=== PATIENT | male | born 1940 | race Caucasian/White ===

== ENCOUNTER 2017-05-02 14:28 | Inpatient (IN) ==
--- NOTE | 2017-05-02 15:46 | CT Report ---
Referring physician: Rylan Minor EXAM: CT abdomen and pelvis with contrast DATE: 05/02/2017 COMPARISON: 01/18/2016 REASON: Lower GI bleeding with history of diverticulitis TECHNIQUE: Axial images of the abdomen and pelvis were obtained after administration of 100 cc of Omnipaque 350 IV contrast. Coronal and sagittal reformatted images were also provided. Total DLP is 848.30 mGy*cm. FINDINGS: Stable 12 mm nodule in the right lower lobe with central calcification. Chronic scarring/atelectasis at the visualized lung bases. Coronary artery calcifications. The liver is normal in size with 6 mm hypodensity in the posterior right lobe. There is peripheral enhancement with filling in with contrast on the delayed scans. The previous exam was obtained without contrast which makes it more difficult to compare this finding. No dilated ducts or calcified gallstones. The spleen is normal in size with multiple calcified granulomata. The pancreas, adrenal and adrenal glands are stable in appearance. Cortical scarring kidneys with multiple renal cysts. 7 mm calculus lower pole of the right kidney. 2 mm mid pole left renal calculus with no definite ureteral calculi. Calcification in the wall of the nondilated abdominal aorta with no adjacent adenopathy. Small hiatal hernia and fat-containing umbilical hernia. Extensive diverticulosis of the colon. Diffuse thickening of the wall of the left colon. No evidence of focal diverticulitis, appendicitis, free air, or free fluid. 27 mm density at the level of the ileocecal valve. Calcifications in the prostate which measures 55 mm in diameter and indents the base of the urinary bladder. 7.61 mm anterolisthesis of L5 in relationship to S1 with degenerative changes IMPRESSION: Stable 12 mm nodule in the right lower lobe which contains central calcification. Arterial calcifications including coronary artery calcifications. Probable 6 mm hemangioma in the right lobe of the liver. Evidence of old healed granulomatous disease with calcified granulomata in the spleen. Cortical scarring in the kidneys with bilateral nephrocalcinosis and renal cysts. Small hiatal hernia and fat-containing umbilical hernia. Extensive diverticulosis of the colon with progressive diffuse thickening of the wall of the left colon which could be related to colitis, inflammatory bowel disease, etc. 28 mm density at the level of the ileocecal valve which may represent a mass, polyp, or fecal material. Endoscopy may be helpful for further evaluation of these findings. Nonspecific enlargement of the prostate. Grade 1 spondylolisthesis at L5-S1 with degenerative changes. The CT exam was performed using one or more of the following dose reduction techniques: Automated exposure control and adjustment of the mA and/or kV according to patient size. PROCEDURE INTERPRETED AT [facility] DEPARTMENT OF RADIOLOGY Final Report Signed by: Dr. Leighann Mcgee
[2017-05-02 15:53] LABS: Basophils % 0.1 % (0.0-0.8); Eosinophils # 0.1 10*3/uL (0.0-0.87); Eosinophils % 1.2 % (0.00-10.9); Hematocrit 39.1 VOL% (42.0-52.0); Hemoglobin 12.9 GM/DL (14.0-18.0); Immature Granulocytes % 0.1 %; Immature Granulocytes Absolute 0.01 #; Lymphocytes # 1.1 10*3/uL (1.4-4.0); Lymphocytes % 14.7 % (21.2-54.2); Mean Corpuscular Hemoglobin 32 PG (27-34); Mean Corpuscular Volume 95.8 FL (87-102); Mean Platelet Volume 11.6 FL (9.6-12.0); Monocytes # 0.6 10*3/uL (0.11-0.8); Monocytes % 7.4 % (1.7-12.7); Neutrophils # 5.6 10*3/uL (1.4-7.4); Neutrophils % 76.5 % (38.7-73.9); Platelet Count 194 T/CUMM (130-400); Red Blood Count 4.08 MC/CUMM (3.8-5.5); Red Cell Distribution Width 13.6 % (9.3-17.3); White Blood Count 7.4 T/CUMM (4-12)
[2017-05-02 16:01] LABS: PT Patient Result 10.9 SECS
[2017-05-02 16:16] LABS: Albumin 3.7 G/DL (3.4-5.0); Bilirubin,Total 0.5 MG/DL (0.2-1.0); Calcium 8.9 MG/DL (8.5-10.1); Magnesium 1.9 MG/DL (1.8-2.4); Osmolality,Calculated 287.7 MOS/KG (273-304); Potassium 3.9 MMOL/L (3.5-5.1); Total Protein 6.5 G/DL (6.4-8.3)
--- NOTE | 2017-05-02 16:49 | Emergency Department Note ---
Wyatt Donovan Rolonda, am scribing for, and in the presence of, Rylan Minor MD 14:46. Iván Donovan Phillip K, MD, personally performed the services described in this documentation, ascribed by Matthew Schneider in my presence, and it is both accurate and complete [id number] . Arrival - Arrival Chief Complaint: GI Bleed/Rectal Stated Complaint: abdominal pain; gi bleed Mode of Arrival: Ambulatory Limitations: No Limitations Source: Patient, Old Records Reviewed, RN Notes Reviewed - History of Present Illness HPI Narrative: Pt is a 76 y/o male who presents to the ED for further evaluation of blood in the stool with an onset of this morning. Pt has a PMHx of Diverticulitis and Hemorrhoids with his last scope being x4 years ago. He stated that while trying to have a BM this morning he experienced stomach cramps, blood in his stool and recently 4-5 times. He confirmed that he takes baby ASA daily, Ibuprofen occasionally, and that he had a subjective fever this morning; at time of triage pt's temperature was 99.0. No other pain/complaint in ED. Onset (ago): hour(s) Consistency: constant Severity: moderate Severity scale (1-10): 3 Allergies/Adverse Reactions: Allergies Allergy/AdvReac Type Severity Reaction Status Date / Time No Known Allergies Allergy Verified 01/18/16 06:55 Home Medications: Home Medications Medication Instructions Recorded Confirmed Type Enalapril Tab [Vasotec Tab] 20 mg PO BEDTIME 11/29/15 05/02/17 History Folic Acid 1.6 mg PO DAILY 11/29/15 05/02/17 History Multivit-Min/FA/Lycopen/Lutein 1 each PO QAM 11/29/15 05/02/17 History [Centrum Silver Tablet] Aspirin EC Tab 81 mg PO DAILY 05/02/17 05/02/17 History Gabapentin 300 mg PO BEDTIME 05/02/17 05/02/17 History Methotrexate Tab 25 mg PO Q7DAY 05/02/17 05/02/17 History Omeprazole [Prilosec] 20 mg PO DAILY 05/02/17 05/02/17 History Tamsulosin [Flomax] 0.4 mg PO BID 05/02/17 05/02/17 History Tizanidine HCl [Zanaflex] 4 mg PO BEDTIME 05/02/17 05/02/17 History Review of System - Review of System 12 point system: reviewed and no additional remarkable complaints except as stated - Review of System Constitutional: Present: fever Respiratory: Absent: cough, respiratory distress Cardiovascular: Absent: chest pain Gastrointestinal: Present: other (stomach cramps). Absent: abdominal pain Genitourinary male: Present: other (blood in stool) Musculoskeletal: Absent: arm pain, back pain, neck pain Exam Vital Signs: Vital Signs Temperature 99.0 F 05/02/17 14:29 Pulse Rate 79 05/02/17 14:29 Respiratory Rate 15 05/02/17 14:29 Blood Pressure 122/87 05/02/17 14:29 O2 Sat by Pulse Oximetry 100 05/02/17 14:29 - General General appearance: alert, in no apparent distress - Head Head exam: Present: atraumatic, normocephalic - Eye Eye exam: Present: normal appearance, PERRL, EOMI - ENT ENT exam: Present: mucous membranes moist. Absent: mucous membranes dry - Neck Neck exam: Present: full ROM. Absent: tenderness - Chest Chest inspection: Present: symmetric chest wall rise. Absent: tenderness - Respiratory Respiratory exam: Present: normal lung sounds bilaterally. Absent: rales - Cardiovascular Cardiovascular exam: Present: regular rate, normal rhythm, normal heart sounds. Absent: bradycardia - Abdominal Exam Abdominal exam: Present: soft, normal bowel sounds. Absent: tenderness - Rectal Exam Rectal exam: Present: heme (+) stool - Extremities Exam Extremities exam: Present: full ROM. Absent: tenderness - Back Exam Back exam: Present: full ROM. Absent: tenderness - Neurological Exam Neurological exam: Present: alert, oriented X3, CN II-XII intact - Psychiatric Psychiatric exam: Present: normal affect, normal mood - Skin Skin exam: Present: warm, intact, normal color. Absent: rash Course Course Narrative: Patient discussed with Dr. Lamb in the hospitalist. Dr. Lamb does not recommend any antibiotics at this time. Results - Labs CBC & BMP: 05/02/17 15:41 05/02/17 15:41 Lab Results: I have reviewed the patients labs Labs: Laboratory Tests 05/02/17 15:00 POC Creatinine 0.64 L POC Estimated GFR (eGFR) > 60 Laboratory Tests 05/02/17 05/02/17 05/02/17 15:41 15:41 15:41 WBC 7.4 RBC 4.08 Hgb 12.9 L Hct 39.1 L Plt Count 194 Neut % (Auto) 76.5 H Lymph % (Auto) 14.7 L Lymph # (Auto) 1.1 L INR 1.0 PT Patient/Control Mix 10.9 Sodium 145 Potassium 3.9 Chloride 110 H Carbon Dioxide 25 BUN 16 GFR Calculation 91 - Diagnostic Findings Procedure: CT Abdomen and Pelvis: report reviewed by me (Stable 12 mm nodule in the right lower lobe which contains central calcification. Aterial calcifications including coronary.) Disposition Clinical Impression: Diverticulosis, Probable diverticular bleed Case discussed with: patient Disposition: Still a Patient Condition: Guarded Additional Instructions: Admit to the hospital for serial H&H's.
[2017-05-02] MEDS ORDERED: MAGNESIUM SULF RIDER 2 GM in PREMIX 1 EACH IV PRN (17:34)
[2017-05-02] MEDS ORDERED: HYDROmorphone 2 MG/1 ML VIAL IV PRN (17:34)
[2017-05-02] MEDS ORDERED: MAGNESIUM SULF RIDER 4 GM in PREMIX 1 EACH IV PRN (17:34)
[2017-05-02] MEDS ORDERED: ONDANSETRON 4 MG/2 ML VIAL IV PRN ×2 (17:34→19:37)
--- NOTE | 2017-05-02 17:39 | Hospitalist History & Physical ---
Assessment and Plan (1) Aspirin long-term use Status: Acute Assessment and plan: Aspirin will remain on hold due to active diverticular bleed. Current Visit: Yes (2) Diverticulosis Status: Acute Assessment and plan: CT scan significant for extensive diverticulosis of the colon with progressive diffuse thickening of the wall of the left colon. H&H is stable at the time of ED presentation at 12.9 and 39.1. We will type and screen, gently rehydrate, keep n.p.o., start PPIs, and start DVT prophylaxis. We will hold the aspirin. We will not initiate antibiotic coverage per request of Dr. Lamb. Current Visit: Yes (3) Hypertension Status: Chronic Assessment and plan: Blood pressure is stable at the time of admission, we will continue to monitor. Current Visit: No History of Present Illness Chief complaint: Rectal bleeding History of present illness: This is a very pleasant 76-year-old male that presented to the ED at [facility] this afternoon for the evaluation of rectal bleeding and abdominal pain. The patient has a very extensive medical history significant for: Hypertension, rheumatoid arthritis, asthma, diverticulosis, cerebrovascular accident, transient left leg weakness, benign prostatic hypertrophy. Patient has a surgical history significant for:bilateral shoulder surgery, bilateral neuroma removal from bilateral hands, lithotripsy, and hernia repair. The patient reported the onset of the above symptoms earlier this morning. The patient reported abdominal cramps with multiple bowel movements in which he noted blood was in his stool. The patient reports current aspirin use and occasional ibuprofen use. In addition the patient reported that he had a fever this morning however he was afebrile at the time of ED presentation. The patient was assessed at the time of ED presentation; labs were obtained. Complete blood cell count reported his white blood cell count 7.4, hemoglobin 12.9, hematocrit 31.9. Coagulation panel reported INR 1.0 and PT at 10.9. Chemistry panel reported sodium at 145, potassium 3.9, chloride 110, carbon dioxide 25, BUN 16, creatinine is 0.90 and glucose at 88[address] CT abdomen pelvis reported the following: #1. 12 mm nodule in the right lower lobe which contains central calcification, 2. Arterial calcifications including coronary artery calcification, 3. Probable 6 mm hemangioma in the right lobe of the liver, for evidence of old healed granulomatous disease with calcified granulomata in the spleen, 5. Cortical scarring in the kidneys with bilateral nephro calcinosis and renal cyst, 6. Extensive diverticulosis of the colon with progressive diffuse thickening of the wall of the left colon which could be related to colitis, inflammatory bowel disease. 7. 28 mm density at the level of the ileocecal valve which may represent a mass , polyp, or fecal material. 8. Nonspecific enlargement of the prostate, 9. Grade 1 spondylolisthesis at L5 through S1 with degenerative changes. After brief discussion with both Dr. Minor and Dr. Bhakta, the patient will be admitted to the hospitalist services for continuation of care. Dr. Hardik Lamb was contacted regarding the management of the patient. He has agreed to assist in the management of this patient and requests that no antibiotic coverage be initiated. Home Medications Medication Instructions Recorded Confirmed Type Enalapril Tab [Vasotec Tab] 20 mg PO BEDTIME 11/29/15 05/02/17 History Folic Acid 1.6 mg PO DAILY 11/29/15 05/02/17 History Multivit-Min/FA/Lycopen/Lutein 1 each PO QAM 11/29/15 05/02/17 History [Centrum Silver Tablet] Aspirin EC Tab 81 mg PO DAILY 05/02/17 05/02/17 History Gabapentin 300 mg PO BEDTIME 05/02/17 05/02/17 History Methotrexate Tab 25 mg PO Q7DAY 05/02/17 05/02/17 History Omeprazole [Prilosec] 20 mg PO DAILY 05/02/17 05/02/17 History Tamsulosin [Flomax] 0.4 mg PO BID 05/02/17 05/02/17 History Tizanidine HCl [Zanaflex] 4 mg PO BEDTIME 05/02/17 05/02/17 History Allergies Allergy/AdvReac Type Severity Reaction Status Date / Time No Known Allergies Allergy Verified 01/18/16 06:55 Medical,Surgical,& Family Hx - Medical History Cardio: History of: Hypertension Rheumatology: History of;: Rheumatoid Arthritis Respiratory: History of: Asthma, Respiratory Problems (lung mass) Genitourinary: History of: Kidney Stones Gastrointestinal: History of: Diverticulitis/ Diverticulosis Musculoskeletal: History of: Back/Neck Problems - Surgical History Cardiac Surgeries: Sugical HX of: Cardiac Catheterization Thoracic Surgeries: Surgical HX of;: Lithotripsy, Lobectomy Neurologic Surgeries: Patient denies: Neurologic Surgery Abdominal Surgeries: Surgical HX of: Hernia Repair Orthopedic Surgeries: Surgical HX of;: Orthopedic Surgery (bilateral shoulder surgery and bilateral Carrion's neuroma surgery.) - Family History Family History: Reports;: Family Heart Disease (mother of congestive heart failure) - Social History Smoking Status: Never smoker Frequency of Alcohol Use: None Type of Drug Use: None 12 point system: reviewed and no additional remarkable complaints except as stated Exam - Constitutional Vitals: Period Temp Pulse Resp BP Sys/Marcial Pulse Ox Last 24 Hr 99.0 F-99.0 F 66-79 15-18 118-141/77-91 95-100 General appearance: normal weight, no acute distress - Head Head exam: Present: normal inspection, normocephalic. Absent: atraumatic - Eye Eye exam: Present: EOMI. Absent: conjunctival injection Pupils: Present: SHAKIRA, normal accommodation - ENT ENT exam: Present: normal exam, normal external ear exam, normal oropharynx - Neck Neck exam: Present: normal inspection. Absent: lymphadenopathy, meningismus, tenderness, thyromegaly - Respiratory Respiratory exam: Present: clear to auscultation bilaterally. Absent: rales, rhonchi, stridor - Cardiovascular Cardiovascular exam: Present: regular rate and rhythm - GI/Abdominal GI/Abdominal exam: Present: normal bowel sounds, soft - Extremities Exam Extremities exam: Present: normal inspection, normal capillary refill, full ROM. Absent: edema - Back Exam Back exam: Present: normal inspection - Neurological Exam Neurological exam: Present: alert, oriented X3, CN II-XII intact - Psychiatric Psychiatric exam: Present: normal affect, normal mood - Skin Skin exam: Present: normal color, warm, dry Results - Labs CBC & BMP: 05/02/17 15:41 05/02/17 15:41 Lab Results: I have reviewed the past 24 hour labs
[2017-05-02] MEDS ORDERED: ACETAMINOPHEN 325 MG TABLET PO PRN (19:37)
[2017-05-02] MEDS ORDERED: ZALEPLON 5 MG CAPSULE PO PRN (19:37)
[2017-05-02] MEDS: SODIUM CHLORIDE 0.9% 1,000 ML IV SCH (19:55)
[2017-05-02] MEDS: tiZANidine 4 MG TABLET PO SCH (21:16)
[2017-05-02] MEDS: TAMSULOSIN 0.4 MG CAPSULE PO SCH (21:16)
[2017-05-02] MEDS: GABAPENTIN 300 MG CAPSULE PO SCH (21:16)
[2017-05-02] MEDS: ENOXAPARIN 40 MG/0.4 ML SYRINGE SUBCUT SCH (21:24)
[2017-05-02] MEDS: POTASSIUM CHLORIDE RIDER 10 MEQ in PREMIX 1 EACH IV PRN (21:28)
[2017-05-03] MEDS: SODIUM CHLORIDE 0.9% 1,000 ML IV SCH ×2 (04:07→15:13)
[2017-05-03 05:25] LABS: Basophils % 0.7 % (0.0-0.8); Eosinophils # 0.2 10*3/uL (0.0-0.87); Eosinophils % 3.1 % (0.00-10.9); Hematocrit 35.1 VOL% (42.0-52.0); Hemoglobin 11.9 GM/DL (14.0-18.0); Immature Granulocytes % 0.3 %; Immature Granulocytes Absolute 0.02 #; Lymphocytes # 1.4 10*3/uL (1.4-4.0); Lymphocytes % 23.4 % (21.2-54.2); Mean Corpuscular HGB Conc 33.9 GM/DL (32-36); Mean Corpuscular Hemoglobin 33 PG (27-34); Mean Corpuscular Volume 96.2 FL (87-102); Mean Platelet Volume 10.4 FL (9.6-12.0); Monocytes # 0.4 10*3/uL (0.11-0.8); Monocytes % 6.7 % (1.7-12.7); Neutrophils % 65.8 % (38.7-73.9); Platelet Count 154 T/CUMM (130-400); Red Blood Count 3.65 MC/CUMM (3.8-5.5); Red Cell Distribution Width 13.4 % (9.3-17.3); White Blood Count 6.1 T/CUMM (4-12)
[2017-05-03 05:58] LABS: Troponin I Only < 0.015 NG/ML (0.00-0.045)
[2017-05-03 06:10] LABS: Albumin 3.1 G/DL (3.4-5.0); Bilirubin,Total 0.7 MG/DL (0.2-1.0); Magnesium 1.8 MG/DL (1.8-2.4); Osmolality,Calculated 284.8 MOS/KG (273-304); Potassium 3.6 MMOL/L (3.5-5.1); Total Protein 5.4 G/DL (6.4-8.3)
--- NOTE | 2017-05-03 07:24 | EKG Report ---
Stationary ECG Study [facility] Test Date: 05/03/2017 7:22:12 AM Pat Name: MARINA YARBROUGH Department: Room: 543 Gender: M [employer] Operator: JENIFER : 1940 Requested by: Jason Bhakta Order Number: [id number] Reading MD: DORY VALDEZ Intervals [place] Rate: 60 P: 67 ID: [id number] QRS: -30 QRSD: 106 T: 58 QT: 418 QTc: 418 Interpretive Statements SINUS RHYTHM POSSIBLE RIGHT VENTRICULAR CONDUCTION DELAY INFERIOR MYOCARDIAL INFARCTION, PROBABLY OLD Electronically Signed On 05-03-17 17:49:28 CDT by DORY VALDEZ [email or web address]
[2017-05-03] MEDS: FOLIC ACID 0.4 MG TABLET PO SCH (08:42)
[2017-05-03] MEDS: TAMSULOSIN 0.4 MG CAPSULE PO SCH ×2 (08:43→21:09)
[2017-05-03] MEDS: PANTOPRAZOLE 40 MG TABLET PO SCH (08:43)
--- NOTE | 2017-05-03 08:49 | Hospitalist Progress Note ---
Assessment and Plan (1) Aspirin long-term use Status: Acute Assessment and plan: Aspirin will remain on hold due to active diverticular bleed. 05/03-Aspirin remains on hold. No active bleeding noted. Current Visit: Yes (2) Diverticulosis Status: Acute Assessment and plan: CT scan significant for extensive diverticulosis of the colon with progressive diffuse thickening of the wall of the left colon. H&H is stable at the time of ED presentation at 12.9 and 39.1. We will type and screen, gently rehydrate, keep n.p.o., start PPIs, and start DVT prophylaxis. We will hold the aspirin. We will not initiate antibiotic coverage per request of Dr. Lamb. 05/03-no significant events reported overnight. No further episodes of bloody stools reported. H&H is stable at 11.9 and 35.1 however, this is a noted decrease from yesterday at 12.9 and 39.1. Awaiting GI evaluation this a.m. Current Visit: Yes (3) Hypertension Status: Chronic Assessment and plan: Blood pressure is stable at the time of admission, we will continue to monitor. 05/03-blood pressure stable overnight;will continue to monitor Current Visit: No Hospitalist: Subjective Interval history: Patient seen and examined; chart reviewed. No significant overnight events. No further episodes of bloody stools reported. H&H is stable today at 11.9 and 35.1. Awaiting GI evaluation. Patient states "I am ready to go home". May be appropriate for possible discharge this afternoon after GI evaluation if okay with GI. Exam - Constitutional Vitals: Period Temp Pulse Resp BP Sys/Marcial Pulse Ox Last 24 Hr 97.6 F-99.0 F 64-79 15-20 118-158/73-95 94-100 General appearance: normal weight, no acute distress - Head Head exam: Present: normal inspection, normocephalic, atraumatic - Eye Eye exam: Present: EOMI, conjunctival injection Pupils: Present: SHAKIRA, normal accommodation - ENT ENT exam: Present: normal exam, normal external ear exam, normal oropharynx - Neck Neck exam: Present: normal inspection. Absent: lymphadenopathy, meningismus, tenderness, thyromegaly - Respiratory Respiratory exam: Present: clear to auscultation bilaterally. Absent: rales, rhonchi, stridor, wheezes - Cardiovascular Cardiovascular exam: Present: regular rate and rhythm. Absent: carotid bruit, diastolic murmur, gallop, JVD, rubs, systolic murmur - GI/Abdominal GI/Abdominal exam: Present: normal bowel sounds, soft. Absent: tenderness - Extremities Exam Extremities exam: Present: normal inspection, normal capillary refill, full ROM. Absent: edema - Back Exam Back exam: Present: normal inspection - Neurological Exam Neurological exam: Present: alert, oriented X3, CN II-XII intact - Psychiatric Psychiatric exam: Present: normal affect, normal mood - Skin Skin exam: Present: normal color, warm, dry Results - Labs CBC & BMP: 05/03/17 05:14 05/03/17 05:14 Lab Results: I have reviewed the past 24 hour labs
[2017-05-03] MEDS ORDERED: PANTOPRAZOLE 40 MG VIAL IV SCH (09:00)
--- NOTE | 2017-05-03 09:20 | Gastrointestinal Consult Note ---
<JhonnyaramisKaleigh Benito - Last Filed: 05/03/17 09:17> Assessment and Plan (1) Rectal bleed Status: Acute Assessment and plan: 05/03-sudden onset of lower abdominal pain and cramping with 4 episodes of bright red bleeding with clots mixed with stool. No prior history of GI bleeding in past. History of pancolonic diverticulosis on last colon scope. Hemoglobin holding 11.9 today down slightly from admission. Continue to monitor H&H and tentatively plan for colonoscopy during this hospitalization unless otherwise arranged to do outpatient. Plan an addendum to follow by Dr. Lamb. Current Visit: Yes History of Present Illness Chief complaint: Rectal bleed History of present illness: Mr. Juarez is a 76 year old male who was admitted to the hospital with sudden onset of rectal bleeding. Patient states that he was in his usual state of health until Monday when he felt the urge to have a bowel movement. He states that he had difficulty doing so therefore the next day he ate several prunes prior to going to bed. He states when he woke up Monday morning he has some lower abdominal pain and cramping and went to the bathroom and after straining was able to have a fairly normal bowel movement. He went on to work and shortly after arriving he had another onset of abdominal pain and cramping and went to the bathroom and noted to pass bright red blood with dark clots mixed in with his stool. He states that he had approximately 4 episodes of this and was not associated with any other symptoms. He states that he called Dr. Faith Minor who is a personal friend of his and was told to come to the emergency room for further evaluation. Patient has had no further rectal bleeding since yesterday morning. He has not had a bowel movement since this time either. He denies taking any anticoagulants and denies any NSAID use other than occasional ibuprofen. He denies any recent weight loss, fever or chills. On admission CT of abdomen with IV contrast shows extensive diverticulosis of the colon with progressive diffuse thickening of the left colon wall. Last colonoscopy [address] Lamb with findings of pancolonic diverticulosis. Hemoglobin 12.9 on admission down slightly at 11.9 today. Discussed case with Dr. Mionr, Dr. Decker and Dr. Lamb. Home Medications Medication Instructions Recorded Confirmed Type Enalapril Tab [Vasotec Tab] 20 mg PO QAM 11/29/15 05/03/17 History Folic Acid 1.6 mg PO DAILY 11/29/15 05/02/17 History Multivit-Min/FA/Lycopen/Lutein 1 each PO QAM 11/29/15 05/02/17 History [Centrum Silver Tablet] Aspirin EC Tab 81 mg PO DAILY 05/02/17 05/02/17 History Gabapentin 300 mg PO BEDTIME 05/02/17 05/02/17 History Methotrexate Tab 25 mg PO Q705/02/17 05/02/17 History Omeprazole [Prilosec] 20 mg PO DAILY 05/02/17 05/02/17 History Tamsulosin [Flomax] 0.4 mg PO BID 05/02/17 05/02/17 History Tizanidine HCl [Zanaflex] 4 mg PO BEDTIME 05/02/17 05/02/17 History Allergies Allergy/AdvReac Type Severity Reaction Status Date / Time No Known Allergies Allergy Verified 01/18/16 06:55 Medical,Surgical,& Family Hx - Medical History Cardio: History of: Hypertension Psychological: No history of: Anxiety Disorders, ADHD, Behavior Problems, Bipolar Disorder, Depression, Previous Suicide Attempt, Psychiatric/Substance Abuse Tx, Schizophrenia, Violent Behavior, Psychiatric Problems Rheumatology: History of;: Rheumatoid Arthritis Respiratory: History of: Asthma, Respiratory Problems (lung mass) Genitourinary: History of: Kidney Stones, Prostate Problems (enlarged prostate) Gastrointestinal: History of: Diverticulitis/ Diverticulosis Musculoskeletal: History of: Back/Neck Problems - Surgical History Cardiac Surgeries: Sugical HX of: Cardiac Catheterization Thoracic Surgeries: Surgical HX of;: Lithotripsy, Lobectomy Neurologic Surgeries: Patient denies: Neurologic Surgery Abdominal Surgeries: Surgical HX of: Hernia Repair Orthopedic Surgeries: Surgical HX of;: Orthopedic Surgery (bilateral shoulder surgery and bilateral Carrion's neuroma surgery.) - Family History Family History: Reports;: Family Heart Disease (mother of congestive heart failure, father aneurysm ,htn) - Social History Smoking Status: Never smoker Frequency of Alcohol Use: None Type of Drug Use: None 12 point system: reviewed and no additional remarkable complaints except as stated - Constitutional Constitutional: Present: as per HPI - EENT Eyes: Present: as per HPI Ears: Present: as per HPI Nose, mouth and throat: Present: as per HPI - Cardiovascular Cardiovascular: Present: as per HPI - Respiratory Respiratory: Present: as per HPI - Gastrointestinal Gastrointestinal: Present: as per HPI, abdominal pain, cramping, diarrhea, hematochezia - Genitourinary Genitourinary: Present: as per HPI - Musculoskeletal Musculoskeletal: Present: as per HPI - Neurological Neurological: Present: as per HPI - Psychiatric Psychiatric: Present: as per HPI - Endocrine Endocrine: Present: as per HPI - Hematologic/Lymphatic Hematologic/Lymphatic: Present: as per HPI Exam - Constitutional Vitals: Period Temp Pulse Resp BP Sys/Marcial Pulse Ox Last 24 Hr 97.6 F-99.0 F 64-79 15-20 118-158/73-95 94-100 General appearance: normal weight, no acute distress - Head Head exam: Present: normal inspection, normocephalic - Eye Eye exam: Present: other (Lids and conjunctive are unremarkable). Absent: scleral icterus - ENT ENT exam: Present: normal exam, normal oropharynx - Neck Neck exam: Present: normal inspection - Respiratory Respiratory exam: Present: clear to auscultation bilaterally. Absent: rales, rhonchi, wheezes - Cardiovascular Cardiovascular exam: Present: regular rate and rhythm. Absent: diastolic murmur , JVD, systolic murmur - GI/Abdominal GI/Abdominal exam: Present: normal bowel sounds, soft. Absent: ascites, distended, mass, organomegaly, tenderness - Extremities Exam Extremities exam: Present: normal inspection, full ROM - Back Exam Back exam: Present: normal inspection - Neurological Exam Neurological exam: Present: alert, oriented X3 - Psychiatric Psychiatric exam: Present: normal affect, normal mood - Skin Skin exam: Present: normal color, warm, dry Results - Labs CBC & BMP: 05/03/17 05:14 05/03/17 05:14 Lab Results: I have reviewed the past 24 hour labs <Hardik Lamb - Last Filed: 05/03/17 12:38> History of Present Illness History of present illness: Mr. Juarez is a 76 year old male Exam - Constitutional Vitals: Period Temp Pulse Resp BP Sys/Marcial Pulse Ox Last 24 Hr 97.6 F-99.0 F 54-79 15-20 118-158/73-95 92-100 Results - Labs CBC & BMP: 05/03/17 05:14 05/03/17 05:14
[2017-05-03] MEDS: ENALAPRIL 10 MG TABLET PO SCH (10:02)
[2017-05-03] MEDS ORDERED: BISACODYL 5 MG TABLET PO ONE (12:00)
[2017-05-03] MEDS ORDERED: POLYETHYLENE GLYCOL POWDER 255 GM BOTTLE PO ONE (14:00)
[2017-05-03 16:36] LABS: Hematocrit 35.8 VOL% (42.0-52.0); Hemoglobin 12.1 GM/DL (14.0-18.0)
[2017-05-03] MEDS ORDERED: MAGNESIUM CITRATE 300 ML BOTTLE PO ONE (21:00)
[2017-05-03] MEDS: tiZANidine 4 MG TABLET PO SCH (21:09)
[2017-05-03] MEDS: GABAPENTIN 300 MG CAPSULE PO SCH (21:09)
[2017-05-03] MEDS: ENOXAPARIN 40 MG/0.4 ML SYRINGE SUBCUT SCH (21:09)
[2017-05-03] MEDS: POTASSIUM CHLORIDE RIDER 10 MEQ in PREMIX 1 EACH IV PRN (22:57)
[2017-05-04] MEDS: POTASSIUM CHLORIDE RIDER 10 MEQ in PREMIX 1 EACH IV PRN (00:41)
[2017-05-04 05:41] LABS: Hematocrit 37.5 VOL% (42.0-52.0); Hemoglobin 12.6 GM/DL (14.0-18.0)
--- NOTE | 2017-05-04 08:14 | Hospitalist Progress Note ---
Assessment and Plan (1) Aspirin long-term use Status: Acute Assessment and plan: Aspirin will remain on hold due to active diverticular bleed. 05/03-Aspirin remains on hold. No active bleeding noted. 05/04-Aspirin remains on hold; EGD this a.m. per GI. Current Visit: Yes (2) Diverticulosis Status: Acute Assessment and plan: CT scan significant for extensive diverticulosis of the colon with progressive diffuse thickening of the wall of the left colon. H&H is stable at the time of ED presentation at 12.9 and 39.1. We will type and screen, gently rehydrate, keep n.p.o., start PPIs, and start DVT prophylaxis. We will hold the aspirin. We will not initiate antibiotic coverage per request of Dr. Lamb. 05/03-no significant events reported overnight. No further episodes of bloody stools reported. H&H is stable at 11.9 and 35.1 however, this is a noted decrease from yesterday at 12.9 and 39.1. Awaiting GI evaluation this a.m. 05/04-no significant events reported overnight. No further episodes of bloody stools report H&H stable at 12.6 and 37.5. EGD this a.m. per GI Current Visit: Yes (3) Hypertension Status: Chronic Assessment and plan: Blood pressure is stable at the time of admission, we will continue to monitor. 05/03-blood pressure stable overnight;will continue to monitor 05/04-stable Current Visit: No Hospitalist: Subjective Interval history: Patient seen and examined; chart reviewed. No significant overnight events. Awaiting EGD per GI this a.m. Exam - Constitutional Vitals: Period Temp Pulse Resp BP Sys/Marcial Pulse Ox Last 24 Hr 98.5 F-99.1 F 54-63 16-20 108-133/61-74 92-96 General appearance: normal weight, no acute distress - Head Head exam: Present: normal inspection, normocephalic, atraumatic - Eye Eye exam: Present: EOMI. Absent: conjunctival injection Pupils: Present: SHAKIRA, normal accommodation - ENT ENT exam: Present: normal exam, normal external ear exam, normal oropharynx - Neck Neck exam: Present: normal inspection. Absent: lymphadenopathy, meningismus, tenderness, thyromegaly - Respiratory Respiratory exam: Present: clear to auscultation bilaterally. Absent: rales, rhonchi, stridor, wheezes - Cardiovascular Cardiovascular exam: Present: regular rate and rhythm. Absent: carotid bruit, diastolic murmur, gallop, JVD, rubs, systolic murmur - GI/Abdominal GI/Abdominal exam: Present: normal bowel sounds, soft. Absent: tenderness - Extremities Exam Extremities exam: Present: normal inspection, normal capillary refill, full ROM. Absent: edema - Back Exam Back exam: Present: normal inspection - Neurological Exam Neurological exam: Present: oriented X3, CN II-XII intact - Psychiatric Psychiatric exam: Present: normal affect, normal mood - Skin Skin exam: Present: normal color, warm, dry Results - Labs CBC & BMP: 05/04/17 04:39 05/03/17 05:14 Lab Results: I have reviewed the past 24 hour labs
--- NOTE | 2017-05-04 11:53 | History and Physical Update ---
History and Physical Update - Physical Exam Mental Status: alert and oriented Heart: regular rate and rhythm Lung: clear to auscultation Abdomen: within normal limits Vitals: within normal limits
--- NOTE | 2017-05-04 11:57 | Operative Note ---
Date of procedure: 05/04/17 Pre-op diagnosis: Abnormal CT with rectal bleeding Procedure: Colonoscopy with hot biopsy polypectomy and cold biopsy 76-year-old gentleman admitted with abdominal pain abnormal CT rectal bleeding now for colonoscopy to further evaluate. Informed consent was obtained the patient. He was sedated with MAC anesthesia per anesthesia protocol. Placed in left lateral decubitus position digital exam was normal no rectal masses normal prostate. The Olympus flexible video colonoscope [place] canal vessel direct vision level cecum. Withdrawal time 9 minutes Prep fair to good. Findings: Cecum-identify obvious ago valve appendiceal orifice. No abnormality seen Terminal ileum-normal Ascending colon diverticulosis Transverse colon-diverticulosis Descending colon-diverticulosis Sigmoid colon-moderate diverticulosis with 6 mm proximal sigmoid polyp hot biopsy fulgurated. There is diffuse erythematous change suspicious for ischemic colitis versus diverticular associated colitis which is likely the source of his rectal bleeding. Biopsies were taken. Rectum-normal to direct retroflexed views. The procedure was terminated he tolerated our procedure well his discharge recovery in good condition Postop diagnosis: 1. Colon [id number] polyp path repeat C scope in 5 years 2. Diverticulosis-maintain adequate fiber and fluid intake 3. Acute colitis suspect ischemic colitis versus diverticular associated colitis likely source for rectal bleeding and typically should be self-limited. Biopsies were obtained will follow up path when available. 4. Hematocrit remained stable and patient should be able to be discharged home. 5. Return to clinic with me on May 24 at 3 PM Anesthesia: MAC Surgeon / Physician: Hardik Lamb Estimated blood loss: none Specimens: other (Sigmoid polyp #2 ischemic colitis versus diverticular associated colitis) Condition: stable Disposition: post procedure unit Results - Labs CBC & BMP: 05/04/17 04:39 05/03/17 05:14 Discharge Plan - Discharge Medications No Action Enalapril Tab [Vasotec Tab] 20 mg PO QAM Folic Acid 1.6 mg PO DAILY Multivit-Min/FA/Lycopen/Lutein [Centrum Silver Tablet] 1 each PO QAM Omeprazole [Prilosec] 20 mg PO DAILY Tizanidine HCl [Zanaflex] 4 mg PO BEDTIME Tamsulosin [Flomax] 0.4 mg PO BID Aspirin EC Tab 81 mg PO DAILY Gabapentin 300 mg PO BEDTIME Methotrexate Tab 25 mg PO Q7DAY - Follow Up or Referral - Forms/Instructions
[2017-05-04] MEDS ORDERED: PROPOFOL 200 MG/20 ML VIAL IV ONE (12:00)
[2017-05-04] MEDS ORDERED: LIDOCAINE 1% 5 ML VIAL ONE (12:00)
--- NOTE | 2017-05-04 12:00 | Anesthesia Post-Op ---
Anesthesia Post OP - Post Ansesthetic Evaluation Patient seen in post op: Yes Resp: within normal limits CV: within normal limits Mental: within normal limits Temp: within normal limits [id number]: within normal limits Nausea and Vomiting: within normal limits Pain: within normal limits
--- NOTE | 2017-05-04 13:04 | Discharge Summary ---
Hospital Course - Hospital Course Hospital Course: This is a very pleasant 76-year-old male that presented to the ED at [facility] this afternoon for the evaluation of rectal bleeding and abdominal pain. The patient has a very extensive medical history significant for: Hypertension, rheumatoid arthritis, asthma, diverticulosis, cerebrovascular accident, transient left leg weakness, benign prostatic hypertrophy. Patient has a surgical history significant for:bilateral shoulder surgery, bilateral neuroma removal from bilateral hands, lithotripsy, and hernia repair. The patient reported the onset of the above symptoms earlier this morning. The patient reported abdominal cramps with multiple bowel movements in which he noted blood was in his stool. The patient reported current aspirin use and occasional ibuprofen use. In addition the patient reported that he had a fever this morning however he was afebrile at the time of ED presentation. The patient was assessed at the time of ED presentation; labs were obtained. Complete blood cell count reported his white blood cell count 7.4, hemoglobin 12.9, hematocrit 31.9. Coagulation panel reported INR 1.0 and PT at 10.9. Chemistry panel reported sodium at 145, potassium 3.9, chloride 110, carbon dioxide 25, BUN 16, creatinine is 0.90 and glucose at 88. CT abdomen pelvis reported the following: #1. 12 mm nodule in the right lower lobe which contains central calcification, 2. Arterial calcifications including coronary artery calcification, 3. Probable 6 mm hemangioma in the right lobe of the liver, for evidence of old healed granulomatous disease with calcified granulomata in the spleen, 5. Cortical scarring in the kidneys with bilateral nephro calcinosis and renal cyst, 6. Extensive diverticulosis of the colon with progressive diffuse thickening of the wall of the left colon which could be related to colitis, inflammatory bowel disease. 7. 28 mm density at the level of the ileocecal valve which may represent a mass , polyp, or fecal material. 8. Nonspecific enlargement of the prostate, 9. Grade 1 spondylolisthesis at L5 through S1 with degenerative changes. Patient was admitted to the hospitalist service for a GI bleed. Gastroenterology was consulted. His H/H was monitored closely, remained stable. Colonoscopy performed today by Dr. Lamb, noted diverticulosis as well acute colitis with suspicion of being ischemic versus diverticular, most likely the cause of his bleeding. He has an appointment with Dr. Lamb May 24. He has now reached maximal benefit of inpatient stay and will be discharged to home. - Time spent with patient Time with patient DS: Less than 30 minutes Diagnosis - Discharge Diagnosis (1) Hypertension Status: Chronic (2) Diverticulosis Status: Chronic (3) Rectal bleed Status: Resolved (4) Acute colitis Status: Acute Discharge Plan - Discharge Data Disposition: Disch To Home/Self Care Condition at Discharge: Stable Discharge Diet: advance to your usual diet Activity: resume usual activities as tolerated Hygiene: no restrictions Weight Bearing at Discharge: weight bear as tolerated Driving: no restrictions Contact your physician if you experience:: Shortness of breath, Bleeding - Discharge Medications Continue Enalapril Tab [Vasotec Tab] 20 mg PO QAM Folic Acid 1.6 mg PO DAILY Multivit-Min/FA/Lycopen/Lutein [Centrum Silver Tablet] 1 each PO QAM Omeprazole [Prilosec] 20 mg PO DAILY Tizanidine HCl [Zanaflex] 4 mg PO BEDTIME Tamsulosin [Flomax] 0.4 mg PO BID Aspirin EC Tab 81 mg PO DAILY Gabapentin 300 mg PO BEDTIME Methotrexate Tab 25 mg PO Q7DAY - Follow Up or Referral - Forms/Instructions Exam - Constitutional Vitals: Period Temp Pulse Resp BP Sys/Marcial Pulse Ox Last 24 Hr 98.0 F-99.1 F 55-75 16-20 106-159/60-102 92-99 General appearance: normal weight - Head Head exam: Present: normocephalic, atraumatic - Eye Eye exam: Present: EOMI Pupils: Present: SHAKIRA - ENT ENT exam: Present: normal exam - Neck Neck exam: Present: normal inspection - Respiratory Respiratory exam: Present: clear to auscultation bilaterally - Cardiovascular Cardiovascular exam: Present: regular rate and rhythm - GI/Abdominal GI/Abdominal exam: Present: normal bowel sounds, soft. Absent: tenderness, rebound - Extremities Exam Extremities exam: Present: normal inspection - Back Exam Back exam: Present: normal inspection - Neurological Exam Neurological exam: Present: alert, oriented X3 - Psychiatric Psychiatric exam: Present: normal affect, normal mood - Skin Skin exam: Present: warm, intact Discharge Results Labs on day of discharge: Labs from last 24 hours 05/04/17 05/03/17 04:39 16:11 Hgb 12.6 L 12.1 L Hct 37.5 L 35.8 L DS: Provider Date of admission: 05/02/17 17:06 Primary care physician: . No PCP Attending physician on admission: Rafa Williamson MD Consults: 05/02/17 17:35 Consult to Physician [CONS] Routine Comment: Consulting Provider: Hardik Lamb When should Consulting Provider be notified: In am Consult to Specialist Group: Gastroenterology Person Notified: RYAN VELASCO Date Notified: 05/03/17 Time Notified: 09:33 Discharging clinician: Adolfo Decker MD
[2017-05-04 13:12] VITALS: BP 150/87
[2017-05-04] MEDS: ENALAPRIL 10 MG TABLET PO SCH (13:30)
[2017-05-04] MEDS: PANTOPRAZOLE 40 MG TABLET PO SCH (13:30)
[2017-05-04] MEDS: FOLIC ACID 0.4 MG TABLET PO SCH (13:30)
[2017-05-04] MEDS: TAMSULOSIN 0.4 MG CAPSULE PO SCH (13:30)
--- NOTE | 2017-05-05 12:24 | Pathology Report from [facility] ---
[facility] ACCESSION # : [id number] PATIENT NAME : America Juarez ORDERING DR : MER CONNORS MD CLINICAL HX: GI bleed POST-OP DX: Same SPECIMEN INFO: #1 Sigmoid polyp #2 Ischmic colitis sigmoid GROSS DESCRIPTION: Received in formalin in two parts labeled:#1 GRAY PEEK & #1 consists of a 0.2 x 0.2 cm pink douglas mucosal tissue fragment submitted in cassette #1.#2 GRAY PEEK & #2 consists of an aggregate of red douglas mucosal tissue measuring 0.4 x 0.5 cm submitted in cassette #2. DIAGNOSIS FOR AMERICA JUAREZ: #1 SIGMOID POLYP: Tubular adenoma.#2 ISCHEMIC COLITIS SIGMOID BIOPSY: Chronic inflammation, benign lymphoid aggregates, hemorrhage within the lamina propria, focal acute inflammation. Consistent with early ischemic colitis. COLLECTED DATE: 05/04/2017 [facility] REPORT DATE: 05/05/2017 ELECTRONICALLY SIGNED BY: Quincy Yip M.D. 05/05/2017 - 11:38:24 [facility]
== END 2017-05-04 13:15 | disposition home or self-care (01) | DRG 377 ==
LOC: EDUNIT# → EDBD → N.ED 14:28 → SUATTDRO 17:06 → N.EDINP 17:06 → N.5E 19:27
PROVIDERS: ADMIT Family Medicine; ATTEND Internal Medicine